=== PATIENT | male | born 1975 | race Two or more races ===

== ENCOUNTER 2020-10-17 10:04 | Emergency (ER) | payer MEDICAID ==
[~2020-10-17] VITALS: Ht 172.7 cm; Wt 70.0 kg
--- NOTE | 2020-10-17 10:20 | NUR ---
verna, per ems pt was sleeping and loitering [place] bus stop and when asked to leave by security, pt called for an ambulance. empty pint of vodka found next to pt. pt c/o chest pain for 1 week but wanted to "manhandle it" instead of coming in initially. pt presents slurring words, a&o, resps even and unlabored, vss, nadn. all monitors attached, nsr with no ectopy.
--- NOTE | 2020-10-17 11:28 | NUR ---
pt sleeping in bed, resps even and unlabored, vss, all monitors attached, nsr, nadn. plan for MTF.
--- NOTE | 2020-10-17 12:31 | NUR ---
pt asleep in bed, resps even and unlabored, vss, all monitors attached, nsr, nadn.
--- NOTE | 2020-10-17 14:00 | NUR ---
pt able to ambulate with steady gait, aware and approved dc. no complaints at time of discharge, kush arcos.
[2020-10-17 14:17] VITALS: BP 111/76
--- NOTE | 2020-10-17 14:19 | NUR ---
preceptor RN note: pt given dc instructions. pt a&ox4, ambulatory with steady gait, unassisted. neuro intact. no cervical tenderness, no pain. 5/5 strength to all extremities. face symmetrical. slurred speech improved. pt given cab voucher to go [place] [address]. PIV removed by IVON Almonte, tip intact, this was placed by ems door captain. pt refusing etoh cessation counseling. all questions answered.
== END 2020-10-17 14:13 | disposition home or self-care (01) ==
LOC: ED 13:00
DX: F10.220 Alcohol dependence with intoxication, uncomplicated (principal); R41.82 Altered mental status, unspecified; R47.81 Slurred speech; Y90.0 Blood alcohol level of less than 20 mg/100 ml
CPT/HCPCS: 99283